=== PATIENT | male | born 1980 | race Caucasian/White ===

== ENCOUNTER → 2018-03-17 | Outpatient (CLI) | payer OTHER ==
[2018-03-17 17:51] LABS: BASO % 0.2 % (0.0-1.0); HEMATOCRIT 49.2 % (42.0-52.0); HEMOGLOBIN 17.3 g/dl (13.5-17.5); IMMATURE GRANULOCYTE % 0.5 % (0-3.0); LYMPH # 0.8 10^3/uL (1.5-4.5); LYMPH % 9.5 % (24.0-44.0); MEAN CORPUSCULAR HEMOGLOBIN 32.4 pg (27.0-33.0); MEAN CORPUSCULAR HGB CONC 35.2 g/dl (32.0-36.5); MEAN CORPUSCULAR VOLUME 92.1 fl (80.0-96.0); MONO # 0.6 10^3/uL (0.0-0.8); MONO % 7.2 % (0.0-5.0); NEUTROPHILS # 7.3 10^3/uL (1.8-7.7); NEUTROPHILS % 82.6 % (36.0-66.0); PLATELET COUNT, AUTOMATED 189 10^3/uL (150-450); RED BLOOD COUNT 5.34 10^6/uL (4.30-6.10); RED CELL DISTRIBUTION WIDTH 12.7 % (11.5-14.5); WHITE BLOOD COUNT 8.8 10^3/uL (4.0-10.0)
== END ==
LOC: M WUC 13:58
DX: R50.9 Fever, unspecified (principal)